=== PATIENT | female | born 1990 | race Caucasian/White ===

== ENCOUNTER 2019-11-21 20:40 | Inpatient (IN) | payer BC, SELFPAY ==
[2019-11-21 22:00] VITALS: TEMP 36.6
[2019-11-22] VITALS (55 sets, daily range): BP systolic 116–178; BP diastolic 71–105; PULSE 62–216; RESP 12–16; TEMP 36.1–36.8; O2SAT 98–100; BMI 32.3
[2019-11-22 00:42] LABS: Basophils Percent Auto 0.4 % (0.2-1.2); Eosinophils Percent Auto 0.3 % (0-4.4); Hemoglobin 10.1 g/dL (12.0-15.0); Immature Granulocyte Absolute 0.05 K/mm3 (0.00-0.031); Immature Granulocyte Percent A 0.5 % (0-0.5); Lymphocytes Absolute Auto 2.07 K/mm3 (0.9-3.2); Lymphocytes Percent Auto 21.3 % (18.3-44.2); Mean Corpuscular HGB Conc 32.6 g/dl (32-36); Mean Corpuscular Hemoglobin 28.6 pg (26-34); Mean Corpuscular Volume 87.8 fl (80-100); Mean Platelet Volume 12.7 fl (7.4-10.4); Monocytes Percent Auto 10.1 % (2.6-8.5); Neutrophils Absolute Auto 6.6 K/mm3 (1.3-6.7); Neutrophils Percent Auto 67.4 % (45.5-73.1); Platelet Count Result 214 k/mm3 (150-375); Red Blood Count 3.53 M/mm3 (4.2-5.4); Red Cell Distribution Width 13.7 % (11.5-14.5); White Blood Count 9.7 K/mm3 (4.5-10.0)
[2019-11-22] MEDS: LACTATED RINGERS 1,000 ML 125 ML IV CONT (00:45)
--- NOTE | 2019-11-22 00:48 | LDADM ---
This patient, Livia Patricio, was admitted to Labor/Delivery/Recovery 107 on 11/21/19 at 20:40. Plans for labor, pain management and were discussed with patient. Patient/family oriented to hospital policies and general routines including ID bracelet, bed and alarms, visiting hours, pain management, procedures, bathroom and other care routines, personal items, smoking policy, room service/diet and guest tray routines, security routines, and visiting hours. Patient/Family are encouraged to report perceived risks to care and to ask questions if they do not understand what they are told or what they should do. See OBIX for further documentation.
--- NOTE | 2019-11-22 01:11 | WPDANESEPP ---
Anes - Eval Pre Procedure Procedure: Labor epidural Date/Time: 11/22/19 01:11 Surgeon: Tanya Preop Diagnosis: Labor pain Pre Op Diagnosis: LABOR Patient Data Age: 29 Gender: F Height: 1.75 m Weight: 99.5 kg Last Vital Signs Pulse 62 11/22/19 01:08 BP 151/84 H 11/22/19 01:08 Pulse Ox 100 11/22/19 01:10 Allergies Allergy/AdvReac Type Severity Reaction Status Date / Time No Known Allergies Allergy Verified 11/04/19 12:28 Home Medications Medication Instructions Recorded Confirmed Type PNV cmb#95-ferrous fumarate-FA 1 tablet PO DAILY 11/04/19 11/04/19 History [] acyclovir 400 mg PO DAILY 11/04/19 11/04/19 History Laboratory Tests 11/22/19 11/22/19 11/22/19 00:32 00:32 00:32 WBC 9.7 K/mm3 K/mm3 (4.5-10.0) RBC 3.53 M/mm3 L M/mm3 (4.2-5.4) Hgb 10.1 g/dL L g/dL (12.0-15.0) Hct 31.0 % L % (37.0-47.0) MCV 87.8 fl fl (80-100) MCH 28.6 pg pg (26-34) MCHC 32.6 g/dl g/dl (32-36) RDW 13.7 % % (11.5-14.5) Plt Count 214 k/mm3 k/mm3 (150-375) MPV 12.7 fl H fl (7.4-10.4) Immature Gran % (Auto) 0.5 % % (0-0.5) Neut % (Auto) 67.4 % % (45.5-73.1) Lymph % (Auto) 21.3 % % (18.3-44.2) [place] % (Auto) 10.1 % H % (2.6-8.5) Eos % (Auto) 0.3 % % (0-4.4) Baso % (Auto) 0.4 % % (0.2-1.2) Lymph # (Auto) 2.07 K/mm3 K/mm3 (0.9-3.2) [place] # (Auto) 1.0 K/mm3 H K/mm3 (0.1-0.6) Eos # (Auto) 0.0 K/mm3 K/mm3 (0-0.3) Baso # (Auto) 0.0 K/mm3 K/mm3 (0.0-0.1) Abs Immat Gran (auto) 0.05 K/mm3 H K/mm3 (0.00-0.031) Absolute Neuts (auto) 6.6 K/mm3 K/mm3 (1.3-6.7) Absolute Nucleated RBC 0.0 K/mm3 K/mm3 (0.0-0.012) Nucleated RBC % 0.0 % % (0.0-0.2) Sodium Potassium Chloride Carbon Dioxide BUN Creatinine Estim Creat Clear Calc Estimated GFR Glucose Uric Acid 5.0 mg/dL mg/dL (2.5-7.5) Calcium Total Bilirubin AST ALT Alkaline Phosphatase Total Protein Albumin RPR Pending 11/22/19 00:32 WBC RBC Hgb Hct MCV MCH MCHC RDW Plt Count MPV Immature Gran % (Auto) Neut % (Auto) Lymph % (Auto) [place] % (Auto) Eos % (Auto) Baso % (Auto) Lymph # (Auto) [place] # (Auto) Eos # (Auto) Baso # (Auto) Abs Immat Gran (auto) Absolute Neuts (auto) Absolute Nucleated RBC Nucleated RBC % Sodium Pending Potassium Pending Chloride Pending Carbon Dioxide Pending BUN Pending Creatinine Pending Estim Creat Clear Calc Pending Estimated GFR Pending Glucose Pending Uric Acid Calcium Pending Total Bilirubin Pending AST Pending ALT Pending Alkaline Phosphatase Pending Total Protein Pending Albumin Pending RPR Patient hx anesthesia problems: none Family hx anesthesia problems: none [facility] Past Medical History Medical History (Updated 11/22/19 @ 01:11 by Lance So DO) PIH ( induced hypertension) Family History Family History (Updated 11/04/19 @ 12:30 by Lorena Bro RN) Grandparent Breast cancer Social History Social History Smoking status: Never smoker Second hand tobacco smoke exposure: No Substance use: never Spiritual care concerns: No Exam Day of Procedure 11/22/19 01:11 Patient weight: obese
[2019-11-22 01:29] LABS: Alanine Aminotransferase 15 U/L (4-35); Albumin Level 3.4 g/dL (3.5-5.1); Alkaline Phosphatase 224 U/L (38-126); Aspartate Amino Transferase 26 U/L (14-36); Bilirubin,Total 0.3 mg/dL (0.2-1.3); Blood Urea Nitrogen 11 mg/dL (7-17); Calcium 9.6 mg/dL (8.4-10.2); Carbon Dioxide 22 mmol/L (22-30); Chloride 106 mmol/L (98-107); Estimated CRCL calculation 150 ml/min; Estimated Glomerular Filt Rate > 60; Glucose 84 mg/dL (65-105); Potassium 4.2 mmol/L (3.4-5.0); Sodium 133 mmol/L (137-145)
[2019-11-22] MEDS: ONDANSETRON INJ 4 MG/2 ML VIAL IV PUSH (01:50)
--- NOTE | 2019-11-22 04:07 | WPDHPUPDATE1 ---
History and Physical Update Update Date/Time: 11/22/19 04:07 29 yo at 39w who presents in labor. She reports regular contractions since yesterday afternoon. She denies LOF or vaginal bleeding. She endorses good FM. History and Physical has been reviewed, including an updated exam of the patient. There are NO changes in the patient's condition. Risks, benefits, and alternatives have been discussed and questions answered. Patient agrees to proceed with procedure. A/P: admit to L&D routine admission orders Rh+ GBS neg FHT category 1 regular ctx on toco expectant management
[2019-11-22] MEDS: OXYTOCIN 30 UNITS/NS 500 ML 30 UNITS/500 ML BAG 999 UNITS IV CONT (04:31)
--- NOTE | 2019-11-22 04:34 | PM.OBPRVD ---
OB - Delivery Note Procedure Procedure: Patient pushed for a spontaneous vaginal delivery. The fetus was delivered atraumatically and placed on the maternal abdomen. The cord was clamped and cut after 1 minute of life. The cord was double clamped and cut and a segment of cord was collected for cord gases. Cord blood was collected for blood type and Coomb's testing. The placenta delivered spontaneously and was noted to be intact. The perineum was inspected and there were no lacerations noted. The uterus was firm and good hemostasis was noted. The patient and fetus were stable in the delivery room. events: Meconium Stained Fluid Intrapartal events: None Induction method: none Delivery augmentation: rupture of membranes (meconium stained) Delivery monitor: external FHT Route of delivery: Episiotomy description: None Laceration description: None Specimen: No Estimated blood loss (mL): 200 Anesthesia type: Epidural Disposition: floor () Complications: No immediate complications [place] Baby Date of : 11/22/19 Time of : 04:28 Weeks of gestation at delivery: 39 gender: Male Weight (pounds): 7 Weight (ounces): 8 position: Right Occiput Anterior Placenta delivery description: Spontaneous score one minute: 8 score five minutes: 9
[2019-11-22] MEDS: OXYTOCIN 30 UNITS/NS 500 ML 30 UNITS/500 ML BAG 125 UNITS IV CONT (05:15)
--- NOTE | 2019-11-22 07:00 | PC.NURSE ---
Patient transferred to post room #284 via wheelchair. Support person present. Oriented to unit, room, information board, rooming in, admission packet and security measures. Patient verbalizes understanding.
[2019-11-22 07:23] LABS: Rapid Plasma Reagin Non-Reactive (NonReactive)
[2019-11-22] MEDS: IBUPROFEN 600 MG TABLET (07:23)
--- NOTE | 2019-11-22 08:00 | PC.NURSE ---
Consulted with patient, mother reports this is 2nd child to breastfeed. eagerly latched for first feeding, with on and off during feeding. Mother has nipple tenderness. is sleepy mother is attempting to wake to feed. Demonstrated stimulation techniques to wake for feeding. Assisted with infant to breast. Reviewed positioning/alignment in cross cradle, holding breast in U hold and guided asymmetrical latch on. Discussed rational for each. was able to latch correctly, within a few attempts. nursed eagerly, with steady draws and frequent swallowing noted. Reviewed signs of a correct latch, effective nursing and suck swallow ratio. was able to maintain latch without discomfort to mother. Suggested mother stimulate to keep infant awake and nursing effectively giving slight resistance with pulls back to assist maintaining deep latch. Reviewed feeding cues, frequencies, duration of feedings, feeding elimination flow sheet, signs of adequate intake and nipple care. Instructed mother to call out for RN assistance if she is unable to latch infant for feeding or she has discomfort with nursing. Instructed feeding should be initiated three hours from start of last feeding or if feeding cues are noted before. Mother voiced understanding of information shared.
[2019-11-22] MEDS: MULTIVIT/MIN/PREN/FOL AC/IRON TABLET 1 TAB PO (11:40)
[2019-11-22] MEDS: ACETAMINOPHEN 325 MG TABLET 650 MG PO (11:40)
[2019-11-22] MEDS: DOCUSATE SODIUM 100 MG CAPSULE PO ×2 (11:40→15:51)
[2019-11-22] MEDS: LANOLIN (LANSINOH) 7.5 GM CREAM 1 APPLIC TOPICAL (11:42)
--- NOTE | 2019-11-22 13:30 | PC.NURSE ---
Mother called out for assist with latching. Mother has nipple tenderness to left nipple. Infant is sleepy mother is attempting to wake to feed. Demonstrated stimulation techniques to wake for feeding. Assisted with to breast. Reviewed positioning/alignment in cross cradle, holding breast in U hold and guided asymmetrical latch on. Discussed rational for each. was able to latch correctly, within a few attempts. nursed eagerly, with steady draws and frequent swallowing noted. Reviewed signs of a correct latch, effective nursing and suck swallow ratio. Infant was able to maintain latch without discomfort to mother. Suggested mother stimulate to keep awake and nursing effectively giving slight resistance with infant pulls back to assist maintaining deep latch. Reviewed infant feeding cues, frequencies, duration of feedings, feeding elimination flow sheet, signs of adequate intake and nipple care. Instructed mother to call out for RN assistance if she is unable to latch infant for feeding or she has discomfort with nursing. Instructed feeding should be initiated three hours from start of last feeding or if feeding cues are noted before. Mother voiced understanding of information shared.
[2019-11-22] MEDS: IBUPROFEN 600 MG TABLET PO (15:51)
[2019-11-23 05:21] LABS: Hemoglobin 9.2 g/dL (12.0-15.0)
--- NOTE | 2019-11-23 06:27 | PM.OBPNVD ---
OB - PN: Subj Subjective Date/time seen: 11/23/19 06:27 Patient comments: no complaints and pain well controlled baby status: doing well and nursing well OB - PN: Obj Data Labs CBC & Chem 7: 11/23/19 04:14 11/22/19 00:32 Labs: Laboratory Results - last 24 hr 11/22/19 11/23/19 00:32 04:14 Hgb 9.2 L Hct 28.0 L RPR Non-reactive OB - PN A/P Plan day: 1 Plan: routine care Time Spent With Patient Time: Total time spent is greater than 50% in coordination of care (as documented) at patient's floor/unit and/or counseling patient: Time with patient: less than 15 minutes Review of Systems Review of Systems: All systems reviewed & are unremarkable except as noted in HPI and below Exam Const: General: no acute distress Eyes: General: appearance normal, both eyes and all related structures Neck: Neck: supple and no JVD Thyroid: thyroid normal Resp: Effort & Inspection: normal respiratory effort Auscultation: clear to auscultation bilaterally Cardio: Rate: regular rate Rhythm: regular rhythm GI: Inspection: non-distended GI Palp: Yes Soft to palpation, No Tenderness to palpation present (GI) and No Guarding due to palpation present (GI) Auscultation: normal bowel sounds : General: Yes bladder normal to palpation External Female Exam: normal external appearance Speculum Exam - Vagina: normal vaginal discharge and No vaginal bleeding Speculum Exam - Cervix: nontender Bimanual exam- vagina & uterus: bladder normal to palpation and No Cervical tenderness present OB/external & speculum: No vaginal bleeding Skin: General skin exam: no rashes or lesions noted Extrem: General: normal to inspection and no edema Psych: Mental Status: mental status grossly normal Affect: normal affect
--- NOTE | 2019-11-23 06:52 | P.DS_ITS ---
DS: Diagnosis Admitting Diagnosis Admitting Diagnosis: term DS: Summary Time Spent with Patient Time attestation: Total time spent providing and/or coordinating discharge services: Exam Const: General: no acute distress Eyes: General: appearance normal, both eyes and all related structures Neck: Neck: supple and no JVD Thyroid: thyroid normal Resp: Effort & Inspection: normal respiratory effort Auscultation: clear to auscultation bilaterally Cardio: Rate: regular rate Rhythm: regular rhythm GI: Inspection: non-distended GI Palp: Yes Soft to palpation, No Tenderness to palpation present (GI) and No Guarding due to palpation present (GI) A uscultation: normal bowel sounds : General: Yes bladder normal to palpation External Female Exam: normal external appearance Speculum Exam - Vagina: normal vaginal discharge and No vaginal bleeding Speculum Exam - Cervix: nontender Bimanual exam- vagina & uterus: bladder normal to palpation and No Cervical tenderness present OB/external & speculum: No vaginal bleeding Skin: General skin exam: no rashes or lesions noted Extrem: General: normal to inspection and no edema Psych: Mental Status: mental status grossly normal Affect: normal affect DS: Data Data Completed and Pending Labs on day of discharge: Labs from last 24 hours 11/23/19 11/22/19 04:14 00:32 Hgb 9.2 L Hct 28.0 L RPR Non-reactive Discharge Plan Discharge Attending physician on discharge: Dimitrios Blevins Discharging Clinician: Dimitrios Blevins Patient Disposition: Home, Self-Care Activity: may shower, no straining, may drive after 2 weeks and pelvic rest Diet: heart healthy Wound Care Instructions: follow printed instructions Patient Instructions: Antibiotic Form Stand Alone Forms: General Discharge Information Follow-up/Referrals: Dimitrios Blevins MD [Physician] - Discharge Medications: Continued PNV cmb#95-ferrous fumarate-FA [] 28 mg iron- 800 mcg Tablet 1 tablet PO DAILY RF: 0 acyclovir 400 mg Tablet 400 mg PO DAILY RF: 0 Date of admission: 11/21/19 20:40 Primary Care Provider: UNKNOWN,DOCTOR Admitting Provider: Dimitrios Blevins Attending physician on admission: Dimitrios Blevins
[2019-11-23 07:00] VITALS: BP 132/88; PULSE 79; RESP 18; TEMP 36.6; O2SAT 100
[2019-11-23] MEDS: MULTIVIT/MIN/PREN/FOL AC/IRON TABLET 1 TAB PO (08:47)
[2019-11-23] MEDS: POLYSACCHARIDE IRON COMPLEX 150 MG CAPSULE PO (08:47)
[2019-11-23] MEDS: DOCUSATE SODIUM 100 MG CAPSULE PO (08:47)
[2019-11-23] MEDS: IBUPROFEN 600 MG TABLET PO (08:48)
--- NOTE | 2019-11-23 09:15 | PC.NURSE ---
Mother called out for assist with feeding, reporting pain to nipples. Mother states she requests assist and had a correct latch but still have pain. Mother has her own Latch Assist and Nipple Shield from home. Discussed both and correct uses. Mother does not believe the Latch Assist is helping, she has not attempted with the shield. Nipple shield is a 20 mm, advised she should be using a 24mm. Explained how the shield may assist with latching and nipple discomfort. Discussed nipple shield precautions and possible complications. Instructions given on application and cleaning of shield. Discussed the need to initiate pumping if continues to nurse with the shield. Patient verbalizes understanding. Mother is wishing to attempt this feed with shield. Reviewed positioning/alignment, holding breast and asymmetrical latch on. was able to latch correctly. Infant nursed eagerly, with steady draws and frequent swallowing noted. Reviewed signs of a correct latch, effective nursing and suck swallow ratio. was able to maintain latch without discomfort to mother. Nipple care reviewed. Requested mother call out for assist with pumping when feeding is complete.
--- NOTE | 2019-11-23 10:21 | PC.NURSE ---
Patient viewed the discharge video Mother & Baby Care, The First Two Weeks . Patient was given the opportunity and encouraged to ask questions. Patient verbalized understanding of information shared and has been given the mother/baby guide for home reference.
--- NOTE | 2019-11-23 12:21 | PC.NURSE ---
Circumcision care shown to mother. Self care and care discharge instructions given including follow up visit date and time. Mother verbalized understanding. No questions or concerns. Very pleasant and cooperative. at side.
--- NOTE | 2019-11-23 13:40 | PC.NURSE ---
Assisted mother with her breastpump. Instructions given on breast pump care and usage, pumping schedule, nipple care, and collection and storage of breast milk. Encouraged [id number], breast massage and manual expression to stimulate supply. Assessed patient for correct flange size, placement and draw. Patient verbalizes and demonstrates understanding of instructions. Mother is able to independently latch infant with appropriate positioning/alignment using nipple shield. She denies any nipple discomfort, is feeding as required and waking infant to feed if needed. Infant has had 8 effective feedings in the past 24 hours, and is currently meeting outcomes for weight, output, jaundice and feeding frequencies. Mother states she feels confident to continue effective at home. Reviewed transition to breast milk, signs of adequate intake, and engorgement/relief. Instructed to call ICP if intake/output less than required. Reviewed regular medications mother is taking. Information provided per Dena. Reviewed community resources on the [facility] website and in the Mom/Baby guide. Information on outpatient services provided. Mother has no further questions at this time.
[2019-11-24 10:25] VITALS: BP 135/85; PULSE 88; RESP 20; TEMP 36.8
== END 2019-11-23 14:17 | disposition home or self-care (01) | DRG 807 ==
LOC: ANHLDR 11-22 00:36 → ANHOB2 11-22 07:21
PROVIDERS: Admitting Provider Student in an Organized Health Care Education/Training Program; Visit Provider Obstetrics & Gynecology
DX: O77.0 Labor and delivery complicated by meconium in amniotic fluid (principal); Z37.0 Single live birth; Z3A.39 39 weeks gestation of pregnancy; O99.214 Obesity complicating childbirth; E66.9 Obesity, unspecified
CPT/HCPCS: 36415; 80053; 84550; 85014; 85018; 85025; 86592; 86850; 86900; 86901; A9270; J2405; J2590; J2795; J7120

== ENCOUNTER 2021-12-14 07:32 | Emergency (ER) | payer BC, SELFPAY ==
--- NOTE | ~2021-12-14 | XR_ITS ---
EXAMINATION: XR chest 2V EXAM DATE: 12/14/2021 08:46 INDICATION: Cough x10 days. TECHNIQUE: Frontal and lateral projections of the chest obtained and reviewed. Comparison is made to prior examination from 12/07/2018. FINDINGS: The lungs are clear. There are no pleural effusions. The cardiomediastinal silhouette is within normal limits. There is no pneumothorax suspected. The bones and soft tissues are unremarkab le. IMPRESSION: No acute cardiopulmonary findings. Reviewed, dictated and finalized at location A.
[2021-12-14 07:40] VITALS: BP 153/103; PULSE 86; RESP 22; TEMP 36.1; O2SAT 100
[2021-12-14 07:50] VITALS: O2SAT 100
[2021-12-14 08:05] LABS: Basophils Absolute Auto 0.1 K/mm3 (0.0-0.1); Basophils Percent Auto 0.5 % (0.2-1.2); Eosinophils Absolute Auto 0.1 K/mm3 (0-0.3); Eosinophils Percent Auto 1.1 % (0-4.4); Hematocrit 38.6 % (37.0-47.0); Hemoglobin 13.2 g/dL (12.0-15.0); Immature Granulocyte Absolute 0.05 K/mm3 (0.00-0.031); Immature Granulocyte Percent A 0.5 % (0-0.5); Lymphocytes Absolute Auto 3.63 K/mm3 (0.9-3.2); Lymphocytes Percent Auto 36.2 % (18.3-44.2); Mean Corpuscular HGB Conc 34.2 g/dl (32-36); Mean Corpuscular Hemoglobin 32.4 pg (26-34); Mean Corpuscular Volume 94.8 fl (80-100); Monocytes Absolute Auto 0.8 K/mm3 (0.1-0.6); Monocytes Percent Auto 8.2 % (2.6-8.5); Neutrophils Absolute Auto 5.4 K/mm3 (1.3-6.7); Neutrophils Percent Auto 53.5 % (45.5-73.1); Platelet Count Result 343 k/mm3 (150-375); Red Blood Count 4.07 M/mm3 (4.2-5.4); Red Cell Distribution Width 12.5 % (11.5-14.5)
[2021-12-14] MEDS: ALBUTEROL SULFATE NEB 2.5 MG/0.5 ML INH 5 MG INHALATION (08:08)
[2021-12-14] MEDS: IPRATROPIUM BR 0.02% INH SOLN 0.5 MG/2.5 ML VIAL INHALATION (08:08)
[2021-12-14 08:15] LABS: Alanine Aminotransferase 15 U/L (4-35); Albumin Level 4.1 g/dL (3.5-5.1); Alkaline Phosphatase 78 U/L (38-126); Anion Gap 6 mmol/L (8-16); Aspartate Amino Transferase 23 U/L (14-36); Bilirubin,Total 0.2 mg/dL (0.2-1.3); Blood Urea Nitrogen 19 mg/dL (7-17); Calcium 8.3 mg/dL (8.4-10.2); Carbon Dioxide 27 mmol/L (22-30); Chloride 103 mmol/L (98-107); Estimated CRCL calculation 94 ml/min; Estimated Glomerular Filt Rate > 60; Glucose 90 mg/dL (65-110); Potassium 3.4 mmol/L (3.4-5.0); Sodium 136 mmol/L (137-145)
[2021-12-14 08:59] LABS: SARS-CoV-2 RNA PCR Negative
[2021-12-14 09:04] LABS: Influenza A QL RT-PCR Negative (Negative); Influenza B QL RT-PCR Negative (Negative)
--- NOTE | 2021-12-14 09:04 | ED.URI ---
HPI - URI/Sore Throat General Chief Complaint: Upper Respiratory Infection Stated Complaint: Cough x10 days Time Seen by Provider: 12/14/21 07:37 Source: patient History of Present Illness HPI Narrative: Patient presents with cough and shortness of breath for approximately 10 days. She was seen in urgent care given steroids and Tessalon Perles however symptoms persisted so she came to the ER for evaluation. She denies any congestion or fevers. Reports she is coughing so bad she has a headache. Related Data Home Medications Medication Instructions Recorded Confirmed PNV cmb#95-ferrous fumarate-FA 1 tablet PO DAILY 11/04/19 11/04/19 [] acyclovir 400 mg PO DAILY 11/04/19 11/04/19 Allergies Allergy/AdvReac Type Severity Reaction Status Date / Time No Known Allergies Allergy Verified 12/14/21 07:48 Review of Systems Review of Systems: CONSTITUTIONAL: Denies fever, chills, or sweats. EYES: Denies visual changes, redness, or discharge. ENT: Denies rhinorrhea, congestion, sore throat, or otalgia. CARDIOVASCULAR: Denies chest pain, palpitations, or edema. RESPIRATORY:cough GASTROINTESTINAL: Denies abdominal pain, nausea, vomiting, or diarrhea. GENITOURINARY: Denies dysuria or hematuria. SKIN: Denies rash or itching. MUSCULOSKELETAL: Denies back pain, joint pain, or myalgia. NEUROLOGIC: Denies numbness, dizziness, or weakness. PSYCHIATRIC: Denies anxiety or depression. All systems reviewed & are unremarkable except as noted in HPI and below PMFSH Past Medical History Medical History PIH ( induced hypertension) Family History Family History Grandparent Breast cancer Social History Social History Smoking status: Never smoker Second hand tobacco smoke exposure: No Substance use: never Spiritual care concerns: No Exam Narrative: GENERAL: Well-appearing, well-nourished, and in no acute distress. HEAD: Normocephalic, atraumatic. EYES: PERRLA and EOMI. ENT: Nares clear, no rhinorrhea or epistaxis. Mucous membranes moist. NECK: Supple. No masses. No JVD CHEST: Clear to auscultation. No respiratory distress. No wheezes rales or rhonchi HEART: Regular rate and rhythm. No murmur heard. Normal peripheral pulses. ABDOMEN: Soft, nontender, nondistended, normal active bowel sounds. EXTREMITIES: Normal range of motion. No edema. SKIN: Warm, dry, no rash. NEURO: No focal deficits. Alert and oriented x3. PSYCH: Normal mood and affect. Course Reevaluation(s) Reevaluation #1: Patient reports feeling much improved and is comfortable outpatient plan. Date: 12/14/21 Time: 09:22 Vital Signs Vital signs: Vital Signs Temperature 36.1 C L 12/14/21 07:40 Pulse Rate 86 12/14/21 07:40 Respiratory Rate 22 H 12/14/21 07:40 Blood Pressure 153/103 H 12/14/21 07:40 Pulse Oximetry 100 12/14/21 07:40 Temperature 36.1 C L 12/14/21 07:40 Pulse Rate 65 12/14/21 10:30 Respiratory Rate 18 12/14/21 10:30 Blood Pressure 116/81 12/14/21 10:30 Pulse Oximetry 100 12/14/21 10:30 MDM - URI/Sore Throat MDM Narrative Medical decision making narrative: H&P as above, vss, pt looks clinically well, exam with clear lungs, labs clinically unremarkable, img clinically unremarkable, additional labs/img considered, symptomatic relief available as needed, on reevaluation pt continues to looks clinically well. Suspect viral bronchitis, dns pneumonia, severe sepsis, pneumothorax. plan to tx/monitor as op w/ pcm f/u findings/plan discussed with pt, pt agree/comfortable with plan, return precautions given Lab Data Result diagrams: 12/14/21 07:52 12/14/21 07:52 Labs: Lab Results 12/14/21 12/14/21 12/14/21 Range/Units 07:52 07:52 07:52 WBC 10.0 (4.5-10.0) K/mm3 RBC 4.07 L (4.2-5.4) M/mm3 H
[2021-12-14] MEDS: ACETAMINOPHEN 500 MG TABLET 1000 MG PO (09:20)
[2021-12-14 09:23] VITALS: BP 117/63; PULSE 86; RESP 20; O2SAT 100
[2021-12-14 10:30] VITALS: BP 116/81; PULSE 65; RESP 18; O2SAT 100
== END 2021-12-14 10:30 | disposition home or self-care (01) ==
PROVIDERS: Emergency Provider Emergency Medicine
DX: J40 Bronchitis, not specified as acute or chronic (principal); Z20.822 Contact with and (suspected) exposure to COVID-19
CPT/HCPCS: 36415; 71046; 80053; 85025; 87502; 94640; 99283; A9270; C9803; U0003; U0005

== ENCOUNTER 2022-12-16 00:50 | Emergency (ER) | payer BC, SELFPAY ==
[2022-12-16 00:52] VITALS: BP 143/91; PULSE 84; RESP 18; TEMP 36.6; O2SAT 99
--- NOTE | 2022-12-16 01:05 | ED.GENADULT ---
HPI - General Adult General Chief complaint: Ear Stated complaint: ear pain Time Seen by Provider: 12/16/22 00:59 History of Present Illness HPI narrative: Patient 32-year-old female who presents the emergency department with chief complaint of left ear pain. Patient reports that she has felt as though her ears were multiple stopped up over the last several days and reports that tonight she had intense pain in her left ear. Patient reports that she has decreased hearing out of that ear and feels as though her eardrum is bulging. Patient states that she has had no fever does report that she had a little bit of nasal congestion. Patient reports she has not taken anything for pain but reports the pain is extremely intense. Related Data Home Medications Medication Instructions Recorded Confirmed acyclovir 400 mg tablet 400 mg PO DAILY 11/04/19 11/04/19 vit no.95-ferrous 1 tablet PO DAILY 11/04/19 11/04/19 fumarate 28 mg-folic acid 800 mcg tablet () Allergies Allergy/AdvReac Type Severity Reaction Status Date / Time No Known Allergies Allergy Verified 12/16/22 00:50 Review of Systems Review of Systems: A 10 system review of systems was completed on the patient and is negative except for what is stated in the HPI. Nursing and ancillary documentation was reviewed. [facility] Past Medical History Medical History PIH ( induced hypertension) Family History Family History Grandparent Breast cancer Social History Social History Smoking status: Never smoker Second hand tobacco smoke exposure: No Substance use: never Spiritual care concerns: No Exam Narrative: GENERAL: Well-appearing, well-nourished, and in no acute distress. HEAD: Normocephalic, atraumatic. EYES: PERRLA and EOMI. ENT: Nares clear, no rhinorrhea or epistaxis. Mucous membranes moist. Left eardrum is bulging and erythematous NECK: Supple. CHEST: Clear to auscultation. No respiratory distress. HEART: Regular rate and rhythm. No murmur heard. Normal peripheral pulses. ABDOMEN: Soft, nontender, nondistended, normal active bowel sounds. EXTREMITIES: Normal range of motion. No edema. SKIN: Warm, dry, no rash. NEURO: No focal deficits. Alert and oriented x3. PSYCH: Normal mood and affect. Course Vital Signs Vital signs: Vital Signs Temperature 36.6 C 12/16/22 00:52 Pulse Rate 84 12/16/22 00:52 Respiratory Rate 18 12/16/22 00:52 Blood Pressure 143/91 H 12/16/22 00:52 Pulse Oximetry 99 12/16/22 00:52 Oxygen Delivery Room Air 12/16/22 00:52 Temperature 36.6 C 12/16/22 00:52 Pulse Rate 84 12/16/22 00:52 Respiratory Rate 18 12/16/22 00:52 Blood Pressure 143/91 H 12/16/22 00:52 Pulse Oximetry 99 12/16/22 00:52 Oxygen Delivery Room Air 12/16/22 00:52 Medical Decision Making MDM Narrative Medical decision making narrative: Differential diagnosis includes otitis media upper respiratory infection, otitis externa Patient's exam is consistent with acute otitis media This time laboratory testing was not indicated. Patient received a dose of Augmentin, ibuprofen, Zofran and was given a single dose of [place] in the emergency department Vital Signs Vital Signs: Vital Signs Temperature 36.6 C 12/16/22 00:52 Pulse Rate 84 12/16/22 00:52 Respiratory Rate 18 12/16/22 00:52 Blood Pressure 143/91 H 12/16/22 00:52 Pulse Oximetry 99 12/16/22 00:52 Oxygen Delivery Room Air 12/16/22 00:52 Temperature 36.6 C 12/16/22 00:52 Pulse Rate 84 12/16/22 00:52 Respiratory Rate 18 12/16/22 00:52 Blood Pressure 143/91 H 12/16/22 00:52 Pulse Oximetry 99 12/16/22 00:52 Oxygen Delivery Room Air 12/16/22 00:52 Discharge Plan Discharge Clinical Impression:
[2022-12-16] MEDS: ONDANSETRON HCL ODT 4 MG TABLET PO (01:20)
[2022-12-16] MEDS: HYDROcodone/acetaminophen (*CRX) 5-325 MG TABLET 1 TAB PO (01:21)
[2022-12-16] MEDS: IBUPROFEN 400 MG TABLET 800 MG PO (01:21)
[2022-12-16] MEDS: AMOXICILLIN/CLAVULANATE K 875-125 MG TAB 1 TABLET PO (01:22)
[2022-12-16 01:24] VITALS: BP 139/106; PULSE 83; RESP 18; O2SAT 100
== END 2022-12-16 01:30 | disposition home or self-care (01) ==
LOC: ANHED 01:11
PROVIDERS: Emergency Provider Emergency Medicine; PCP Nurse Practitioner Family
DX: H66.92 Otitis media, unspecified, left ear (principal)
CPT/HCPCS: 99283; A9270

== ENCOUNTER 2024-06-25 10:29 | Emergency (ER) | payer OTHER, SELFPAY ==
--- NOTE | 2024-06-25 10:33 | ED.URI ---
HPI - URI/Sore Throat General Chief Complaint: Upper Respiratory Infection Stated Complaint: Cough and Neck Pain Time Seen by Provider: 06/25/24 10:51 Source: patient, RN notes reviewed and old records reviewed Mode of arrival: ambulatory Limitations: no limitations History of Present Illness HPI Narrative: 33-year-old female presents to the [facility] with continued cough that has been going on for several weeks. Has been treated with an antibiotic on it. Patient also reports neck discomfort. Patient reports that she started getting sick around the 27 of May. Had seen primary care provider was prescribed antibiotics which helped with her sinus issues but not her cough. Patient reports the neck discomfort is worse with coughing. States it hurts more when she moves side to side. No pain with up down. Reports pain started on the right side, has since moved to the left. No midline tenderness. No numbness or tingling in extremity Related Data Home Medications Medication Instructions Recorded Confirmed bupropion HCl 150 mg 24 hr tablet, 150 mg PO DAILY 01/11/24 06/25/24 extended release lisdexamfetamine 50 mg capsule 50 mg PO DAILY 01/11/24 06/25/24 norethindrone 1 mg-ethinyl 1 tablet PO DAILY 01/11/24 06/25/24 estradiol 20 mcg (21)-iron 75 mg (7) tablet (Blisovi Fe 09/25 (28)) Allergies Allergy/AdvReac Type Severity Reaction Status Date / Time No Known Allergies Allergy Verified 06/25/24 10:43 Review of Systems Review of Systems: All systems reviewed & are unremarkable except as noted in HPI and below Constitutional: Constitutional: Reports no additional constitutional complaints ENT: Reports system reviewed and no additional complaints, except as documented Cardiovascular: Cardiovascular: Reports no additional cardiovascular complaints, Denies chest pain and Denies dyspnea Respiratory: Respiratory: Reports as per HPI, Denies chest congestion, Reports cough and Denies dyspnea Gastrointestinal: Gastrointestinal: Reports no additional gastrointestinal complaints, Denies abdominal pain, Denies nausea and Denies vomiting Musculoskeletal: Musculoskeletal: Reports as per HPI and Reports neck pain Integumentary/Breasts: Skin/Breast: Reports system reviewed and no additional complaints, except as docu PMFSH Past Medical History Medical History ADHD Hx of Infante's palsy Hx of herpes genitalis Migraine PIH ( induced hypertension) Surgical History Surgical History History of tonsillectomy (~2022) Family History Family History Grandparent Breast cancer Social History Social History Smoking status: Never smoker Second hand tobacco smoke exposure: No Substance use: never Do You Feel Safe in your Home?: Yes Lack of Transportation: No Lack of Food: Never True Current Housing: I Have Housing Concerned About Future Housing: No Difficulty Paying Gas/Electric Bills: No Difficulty Paying for Meds: No Currently Unemployed: No Education: Trade/Vocational Certificate Difficulty w/ Childcare or Family Care: No Spiritual care concerns: No Comments At the time of my signature, I reviewed and agree with the nursing past medical, surgical, social, and family history. There is no relevant family history pertinent to the patient complaint. Exam Const: General: cooperative, healthy appearing, comfortable, no acute distress, well developed, alert and well nourished Nutritional Appearance: well nourished Orientation/consciousness: patient oriented x3 Limitations: no limitations HENMT: Head: normal to inspection Ears: hearing grossly normal bilaterally and external ears normal Face/Nose/Sinus: Normal external nose present, normal facial exam and face symmetric F
[2024-06-25 10:43] VITALS: BP 128/87; PULSE 88; RESP 16; TEMP 36.6; O2SAT 100
[2024-06-25 10:45] VITALS: BP 128/87; PULSE 88; RESP 16; TEMP 36.6; O2SAT 100
== END 2024-06-25 11:15 | disposition home or self-care (01) ==
PROVIDERS: Emergency Provider Nurse Practitioner; PCP Nurse Practitioner
DX: R05.9 Cough, unspecified (principal); R09.82 Postnasal drip; S16.1XXA Strain of muscle, fascia and tendon at neck level, initial encounter; X58.XXXA Exposure to other specified factors, initial encounter; F90.9 Attention-deficit hyperactivity disorder, unspecified type
CPT/HCPCS: 99213; G0463

== ENCOUNTER 2025-06-05 20:39 | Emergency (ER) | payer OTHER, SELFPAY ==
--- NOTE | ~2025-06-05 | CT_ITS ---
CT HEAD NON-CONTRAST Clinical History: migraine Comparison: None Technique: Unenhanced axial images skull base to vertex Coronal, sagittal reformats CT images acquired with automatic exposure control for dose reduction DLP: 530 mGy-cm Findings: Sulci, ventricles: Unremarkable. No intracerebral hemorrhage. No evidence acute territorial infarct. No mass effect, midline shift. Bony calvarium intact. Visualized paranasal sinuses: Clear. Mastoid air cells: Clear. IMPRESSION: 1. No acute intracranial findings. Reviewed, dictated and finalized at location R.
[2025-06-05 21:13] VITALS: BP 140/90; PULSE 87; RESP 18; TEMP 36.4; O2SAT 100
--- NOTE | 2025-06-05 21:18 | ECG_ITS ---
Test Date: 2025-06-05 21:21:29 Measurements Intervals [place] Rate: 82 P: 60 VT: 156 QRS: 69 QRSD: 85 T: 63 QT: 376 QTc: 439 Interpretive Statements SINUS RHYTHM WITH SINUS ARRHYTHMIA POSSIBLE RIGHT VENTRICULAR CONDUCTION DELAY BASELINE ARTIFACT- II, III BORDERLINE ECG No previous ECG available for comparison Electronically Signed On 06-06-2025 06:17:57 CDT by Manoj Moore D.O.
[2025-06-05 21:35] LABS: BEDSIDEPREGUCG Negative (Negative)
[2025-06-05 21:58] LABS: Add Urine Microscopic? YES; Appearance Urine Turbid (Clear); Glucose Urine UA Negative (Negative); Leukocyte Esterase Ur Negative LEU/UL (Negative); Nitrate Urine Negative (Negative); Non Pathogenic Casts 0-2; Specific Grav Ur 1.013 (1.001-1.035)
[2025-06-05 23:27] LABS: Pregnancy On Board Control Positive
--- OUTSIDE RECORDS SUMMARY | 2025-06-05 23:43 | XMS_ITS | Clinical Summary ---
Author Organization [facility] Address [address] [place] [address] Care Team Providers Care Cooker Helper Name Role Phone Dimitrios Forrester MD Primary Care Provider [phone] Allergies No known active allergies Medications amoxicillin-clavul anate (AUGMENTIN) 875-125 mg per tablet Take 1 tablet by mouth every 12 (twelve) hours 09/01/20 23 Active buPROPion XL (WELLBUTRIN XL) 150 mg 24 hr tablet Take 1 tablet (150 mg total) by mouth every morning 08/09/20 23 Active Vyvanse 40 mg capsule Take 1 capsule (40 mg total) by mouth every morning 09/30/19 24 Active naproxen (NAPROSYN) 500 mg tablet 08/15/20 23 Active Blisovi Fe 09/25, 28, 1 mg-20 mcg (21)/75 mg (7) per tablet Take 1 tablet by mouth daily 08/15/20 23 Active ondansetron ODT (ZOFRAN-ODT) 4 mg disintegrating tablet Take 1 tablet (4 mg total) by mouth every 8 (eight) hours as needed 08/13/20 23 Active predniSONE (DELTASONE) 20 mg tablet 08/13/20 23 Active albuterol HFA (PROVENTIL HFA,VENTOLIN HFA,PROAIR HFA) 90 mcg/actuation inhaler INHALE 2 PUFFS BY MOUTH FOUR TIMES DAILY NEEDED FOR SHORTNESS OF BREATH OR WHEEZING Active benzonatate (TESSALON) 200 mg capsule Take 1 capsule 3 times a day by oral route as needed. Active omeprazole (PriLOSEC) 40 mg capsule Take 1 capsule every day by oral route. 04/28/20 Active scopolamine 1 mg over 3 days patch 3 day Apply 1 patch by transdermal route as directed. 04/28/20 Active ubrogepant (Ubrelvy) 100 mg tablet Take by oral route for 8 days. Active omeprazole (PriLOSEC) 20 mg capsule Take 1 capsule every day by oral route for 90 days. Active topiramate (TOPAMAX) 25 mg tablet Take 1 tablet (25 mg total) by mouth 2 (two) times a day Active Active Problems Problem Noted Date Diagnosed Date Upper respiratory infection 08/31/2023 Mixed anxiety and depressive disorder 04/28/2023 Motion sickness 04/28/2023 Unable to concentrate 04/28/2023 Cryptic tonsil 04/25/2023 Gastroesophageal reflux disease without esophagi tis 04/25/2023 Intermittent dysphagia 04/25/2023 Migraine 04/25/2023 Symptoms involving urinary system 04/25/2023 Pain of ear structure 12/22/2022 Vaginitis 12/03/2022 Nausea 11/20/2022 Candidiasis of vagina 10/21/2022 Acute urinary tract infection 10/19/2022 Pain in throat 08/13/2022 Acute sinusitis 07/22/2022 Immunizations Immunization Administration Dates Next Due HPV9 07/22/2018,03/01/2018,08/24/2017 Influenza, Quadrivalent, Dariela l Culture-based MDCK, Preservative Free, Antibiotic Free, Intramuscular 09/11/2019 Influenza, Quadrivalent, Spl it, Intramuscular 07/22/2018 Meningococcal MCV4P (Menactra) 08/24/2017 Tdap 09/11/2019,04/03/2017 Social History Tobacco Use Types Packs/Day Years Used Date Smoking Tobacco: Never Assessed Comments No Sex and Gender Information Value Date Recorded Sex Assigned at Not on file 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 Gender Identity Not on file Sexual Orientation Not on file Obstetrics History Last Filed Vital Signs Vital Sign Reading Time Taken Comments Blood Pressure 110/60 12/21/2024 9:29 AM CDT Pulse 59 12/21/2024 9:29 AM CDT Temperature 36.4 C (97.6 F) 12/21/2024 9:29 AM CDT Respiratory Rate 16 12/21/2024 9:29 AM CDT Oxygen Saturation 99% 12/21/2024 9:29 AM CDT Inhaled Oxygen Concentration - - Weight 68 kg (150 lb) 12/21/2024 9:29 AM CDT Height 175.3 cm (5' 9) 12/21/2024 9:29 AM CDT Body Mass Index 22.15 12/21/2024 9:29 AM CDT Plan of Treatment Health Maintenance Due Date Last Done Comments Cervical Cancer Screening 1992 Depression Screening 1992 Hepatitis C Screening 1992 Varicella Vaccines (1 of 2 - 13+ 2-dose series) 2005 Hepatitis B Screening 2010 Regular Well Visit/Exam 18-64 2010 Influenza Vaccine (#1) 2025 , 07/22/2018 DTaP/Tdap/Td Vaccine (3 - Td or Tdap) 09/11/2029 09/11/2019, 04/03/2017 HPV Vaccines Completed 07/22/2018, 03/01/2018, 08/24/2017 Pneumococcal vaccine <65 Aged Out No longer eligible based on patient's age to complete this topic Insurance [facility] Address: [facility] [address] [place] [address] [facility] [place] [address] Care Teams Cooker Helper Relationship Specialty Start Date End Date Dimitrios Forrester MD [address] [facility] [address] [place] [address] PCP - General Obstetrics and Gynecology 07/13/24
--- OUTSIDE RECORDS SUMMARY | 2025-06-05 23:43 | XMS_ITS | Clinical Summary ---
Author Organization [facility] Address [address] [place] [address] Care Team Providers Care Otr Owner Operator Truck Driver Name Role Phone Jean Claudesotero Amaya SANDRINE Primary Care Provider [phone] Allergies No known active allergies Medications ondansetron (ZOFRAN-ODT) 4 MG disintegrating tablet Take 1 tablet (4 mg total) by mouth every 8 (eight) hours as needed for Nausea. 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 Gender Identity Not on file Sexual Orientation Not on file Last Filed Vital Signs Vital Sign Reading Time Taken Comments Blood Pressure 125/82 08/13/2023 4:41 PM BOOM STICK WORKER Pulse 81 08/13/2023 4:41 PM BOOM STICK WORKER Temperature 36.1 C (97 F) 08/13/2023 2:00 PM BOOM STICK WORKER Respiratory Rate 18 08/13/2023 4:41 PM BOOM STICK WORKER Oxygen Saturation 100% 08/13/2023 4:41 PM BOOM STICK WORKER Inhaled Oxygen Concentration - - Weight 72.6 kg (160 lb) 08/13/2023 2:00 PM BOOM STICK WORKER Height 175.3 cm (5' 9) 08/13/2023 2:00 PM BOOM STICK WORKER Body Mass Index 23.63 08/13/2023 2:00 PM BOOM STICK WORKER Plan of Treatment Health Maintenance Due Date Last Done Comments Cervical Cancer Screening Pa p Smear (Age 30 to 64) Every 3 Years 1992 Annual Physical 1995 Hepatitis C 2010 Hepatitis B Vaccines (1 of 3 - 19+ 3-dose series) 2011 Cervical Cancer Screening Pa p with HPV Testing (Age 30 to 64) Every 5 Years 2022 Cervical Cancer Screening wi th HPV 2022 COVID-19 Vaccine (1 - 2023-2 5 season) 2025 DTaP, Tdap and Td Vaccines ( 3 - Td or Tdap) 09/11/2029 09/11/2019, 04/03/2017 Meningococcal Vaccine Aged Out 08/24/2017 No michael derek eligible based on patient's age to complete this topic HPV Vaccines Completed 07/22/2018, 03/01/2018, 08/24/2017 Meningococcal B Vaccine Aged Out No l onger eligible based on patient's age to complete this topic Pneumococcal Vaccine: Pediatrics (0 to 5 Years) and At-Risk Patients (6 to 49 Years) Aged Out No longer eligible b ased on patient's age to complete this topic RSV Immunizations Under 20 Months Aged Out No longer eligible b ased on patient's age to complete this topic Insurance [facility] Care Teams Otr Owner Operator Truck Driver Relationship Specialty Start Date End Date Amaya Singh NP [address] [id number] PCP - General NURSE PRACTITIONER 08/13/23
--- NOTE | 2025-06-06 00:07 | ED_ITS ---
HPI - General Adult General Chief complaint: Unspecified Stated complaint: medication side effect Time Seen by Provider: 06/05/25 23:29 History of Present Illness HPI narrative: 34-year-old female with history of Infante's palsy and migraine headaches presenting to the emergency department today with a migraine headache and concerned that she took too much of her topiramate. She states that her doctor increased her topiramate doses over the last 3 weeks and she has been having adverse reactions to this. Initially she was well controlled with 25 mg b.i.d. topiramate dosing and was migraine free for quite a while. Two weeks ago she had recurrence for migraines not responsive to this current regimen and breakthrough Triptan. Her doctor encouraged her to double the dose and she was then taking 50 mg b.i.d. and still having symptoms. Patient then started taking 75 mg b.i.d. over last 4 days and started developing brain fog and some slight trouble breathing. Denies any chest pain or pressure. Endorses still having a migraine headache she describes as bilateral occipital nature. States it feels very similar to her normal migraines. Denies any traumatic injuries. Has a follow-up appointment scheduled with Neurology but has not seen a neurologist yet or had any workup for her migraines. 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) Surgical History Surgical History History of tonsillectomy (~2022) Family History Family History Grandparent Breast cancer Social History Social History Smoking status: Never smoker Second hand tobacco smoke exposure: No Substance use: never Do You Feel Safe in your Home?: Yes Lack of Transportation: No Lack of Food: Never True Current Housing: I Have Housing Concerned About Future Housing: No Difficulty Paying Gas/Electric Bills: No Difficulty Paying for Meds: No Currently Unemployed: No Education: Trade/Vocational Certificate Difficulty w/ Childcare or Family Care: No Spiritual care concerns: No Exam 2 Narrative: GENERAL: [Well-appearing, well-nourished, and in no acute distress.] HEAD: [Normocephalic, atraumatic.] EYES: [PERRLA and EOMI.] 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 Mucous membranes moist. NECK: Supple. CHEST: [Clear to auscultation. No respiratory distress.] HEART: [Regular rate and rhythm]. No murmur heard. [Normal peripheral pulses.] ABDOMEN: [Soft, nondistended], [nontender], [No rigidity or guarding] EXTREMITIES: Normal range of motion. [No edema.] SKIN: Warm, dry, no rash. NEURO: [No focal deficits]. Alert and oriented [x3.] PSYCH: [Normal mood and affect.] Course Vital Signs Vital signs: Vital Signs Temperature 36.4 C 06/05/25 21:13 Pulse Rate 87 06/05/25 21:13 Respiratory Rate 18 06/05/25 21:13 Blood Pressure 140/90 06/05/25 21:13 Pulse Oximetry 100 06/05/25 21:13 Oxygen Delivery Room Air 06/05/25 21:13 Temperature 36.5 C 06/06/25 02:13 Pulse Rate 62 06/06/25 02:13 Respiratory Rate 16 06/06/25 02:13 Blood Pressure 126/82 06/06/25 02:13 Pulse Oximetry 96 06/06/25 02:13 Oxygen Delivery Room Air 06/05/25 21:13 Medical Decision Making [facility] Narrative Medical decision making narrative: 34-year-old female with history of Infante's palsy and migraine headaches presenting to the emergency department today with a migraine headache and concerned that she took too much of her topiramate. She states that her doctor increased her topiramate doses over the last 3 weeks and she has been having adverse reactions to this. Initially she was well controlled with 25 mg b.i.d. topiramate dosing and was migraine free for quite a while. Two weeks ago she had recurrence for migraines not responsive to this current regimen and breakthrough Triptan. Her doctor encouraged her to double the dose and she was then taking 50 mg b.i.d. and still having symptoms. Patient then started taking 75 mg b.i.d. over last 4 days and started developing brain fog and some slight trouble breathing. Denies any chest pain or pressure. Endorses still having a migraine headache she describes as bilateral occipital nature. States it feels very similar to her normal migraines. Denies any traumatic injuries. Has a follow-up appointment scheduled with Neurology but has not seen a neurologist yet or had any workup for her migraines. 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 Patient's physical examination is reassuring with normal neurological assessment. 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 No tachycardia, tachypnea, fever, hypoxia or blood pressure concerns. Symptoms sound consistent with a migraine headache refractory to her current medication regimen and she likely does have some adverse side effects secondary to taking more than her usual topiramate doses but nontoxic does and she is overall very well-appearing. Will obtain a head CT, basic laboratory studies and treat her migraine headache at this time with Compazine, diphenhydramine, fluids, magnesium and Decadron. Will re-evaluate for symptom improvement resolution and provide further guidance based on workup and results/reassessments. Patient felt much better on re-evaluation and her migraine and completely resolved. CT findings unremarkable. Laboratory studies unremarkable. Patient really has neurology follow-up appointment scheduled. Safe for discharge at this time given instructions and return precautions. Discharge during down time so paper instructions provided to her. Encouraged to call her doctor about tapering down her topiramate dosing. Medical Records Medical records reviewed: Yes I reviewed the external patient's medical records. Vital Signs Vital Signs: Vital Signs Temperature 36.4 C 06/05/25 21:13 Pulse Rate 87 06/05/25 21:13 Respiratory Rate 18 06/05/25 21:13 Blood Pressure 140/90 06/05/25 21:13 Pulse Oximetry 100 06/05/25 21:13 Oxygen Delivery Room Air 06/05/25 21:13 Temperature 36.5 C 06/06/25 02:13 Pulse Rate 62 06/06/25 02:13 Respiratory Rate 16 06/06/25 02:13 Blood Pressure 126/82 06/06/25 02:13 Pulse Oximetry 96 06/06/25 02:13 Oxygen Delivery Room Air 06/05/25 21:13 Lab Data Lab results reviewed: Yes I reviewed the patient's lab results. 06/06/25 00:04 06/06/25 00:04 Labs: Lab Results 06/05/25 06/05/25 06/06/25 Range/Units 21:33 21:48 00:04 WBC 7.7 (4.5-10.0) K/mm3 RBC 4.16 L (4.2-5.4) M/mm3 Hgb 13.3 (12.0-15.0) g/dL Hct 38.9 (37.0-47.0) % MCV 93.5 (80-100) fl MCH 32.0 (26-34) pg MCHC 34.2 (32-36) g/dl RDW 12.6 (11.5-14.5) % Plt Count 356 (150-375) k/mm3 MPV 10.0 (7.4-10.4) fl Immature Gran % (Auto) 0.9 H (0-0.5) % Neut % (Auto) 54.7 (45.5-73.1) % Lymph % (Auto) 35.7 (18.3-44.2) % [place]atte % (Auto) 7.1 (2.6-8.5) % Eos % (Auto) 0.8 (0-4.4) % Baso % (Auto) 0.8 (0.2-1.2) % Lymph # (Auto) 2.75 (0.9-3.2) K/mm3 Platte # (Auto) 0.6 (0.1-0.6) K/mm3 Eos # (Auto) 0.1 (0-0.3) K/mm3 Baso # (Auto) 0.1 (0.0-0.1) K/mm3 Abs Immat Gran (auto) 0.07 H (0.00-0.031) K/mm3 Absolute Neuts (auto) 4.2 (1.3-6.7) K/mm3 Absolute Nucleated RBC 0.000 (0.0-0.012) K/mm3 Nucleated RBC % 0.0 (0.0-0.2) % Sodium 138 (137-145) mmol/L Potassium 3.6 (3.4-5.0) mmol/L Chloride 108 H (98-107) mmol/L Carbon Dioxide 19 L (22-30) mmol/L Anion Gap 11 (4-12) mmol/L BUN 13 (7-17) mg/dL Creatinine 1.01 H (0.7-1.0) mg/dL Estim Creat Clear Calc 74 ml/min Estimated GFR > 60 (59 - ) Glucose 102 (65-110) mg/dL Calcium 9.1 (8.4-10.2) mg/dL Magnesium 2.2 (1.6-2.3) mg/dL Total Bilirubin 0.6 (0.2-1.3) mg/dL AST 20 (14-36) U/L ALT 15 (6-35) U/L Alkaline Phosphatase 90 (38-126) U/L Total Protein 8.2 (6.3-8.2) g/dL Albumin 4.7 (3.5-5.1) g/dL Urine Color Yellow (Yellow) Urine Appearance Turbid H (Clear) Urine pH 8.0 (5.0-9.0) Ur Specific [place] 1.013 (1.001-1.035) Urine Protein Negative (Negative) mg/dL Urine Glucose (UA) Negative (Negative) mg/dL Urine Ketones Negative (Negative) mg/dL Ur Blood (Man) Negative (Negative) Urine Nitrate Negative (Negative) Urine Bilirubin Negative (Negative) Urine Urobilinogen 0.2 (<2.0) mg/dL Leukocyte Esterase Rfl Negative (Negative) ESSENCE/UL Urine RBC 0-2 (0-2) /hpf Urine WBC 0-5 (0-3) /hpf Ur Squamous Epith Cells Occasional (Few) /hpf Urine Bacteria None seen /hpf Urine Casts 0-2 POC Urine HCG, Qual Negative (Negative) Urine Test Negative Imaging Data Attestation: I personally reviewed and interpreted this imaging study as follows: My impression: Impressions Head CT 06/06/25 06:24 IMPRESSION: 1. No acute intracranial findings. Discharge Plan Discharge Clinical Impression: Drug side effects Migraine Qualifiers: Migraine type: unspecified Status migrainosus presence: without status migrainosus Intractability: not intractable Qualified Code(s): G43.909 - Migraine, unspecified, not intractable, without status migrainosus Patient Disposition: Home Condition: Stable Instructions: Antibiotic Form Patient Language: Venezuelan Prescriptions: No Action lisdexamfetamine 50 mg capsule 50 mg PO DAILY bupropion HCl 300 mg tablet extended release 24 hr 300 mg PO DAILY omeprazole 40 mg capsule,delayed release(DR/EC) 40 mg PO DAILY Qty: 90 1RF norethindrone-e.estradiol-iron [Blisovi Fe 09/25 (28)] 1 mg-20 mcg (21)/75 mg (7) tablet 1 tablet PO DAILY Qty: 84 0RF topiramate [Topamax] 25 mg tablet 50 mg PO BID Qty: 360 1RF Ubrelvy 100 mg tablet 100 mg PO .COMPLEX Qty: 16 3RF Rx Instructions: 100 mg orally at start of migraine. May repeat dose one; Follow-up/Referrals: Ruperto Tavarez DO [Primary Care Provider, Internal Medicine]
[2025-06-06] MEDS: dexAMETHasone SOD PHOS INJ 10 MG/ML 1 ML VIAL IV PUSH (00:15)
[2025-06-06] MEDS: SODIUM CHLORIDE 0.9% IV 1,000 ML 999 ML IV CONT (00:15)
[2025-06-06] MEDS: SODIUM CHLORIDE 0.9% IV 200 ML 100 ML (00:15)
[2025-06-06] MEDS: PROCHLORPERAZINE EDISYLATE 10 MG/2 ML VIAL IV PUSH (00:15)
[2025-06-06] MEDS: MAGNESIUM SULF 2 GM/WATER 50ML 2 GM/50 ML BAG IVPB (00:16)
[2025-06-06 00:21] LABS: Alanine Aminotransferase 15 U/L (6-35); Albumin Level 4.7 g/dL (3.5-5.1); Alkaline Phosphatase 90 U/L (38-126); Anion Gap 11 mmol/L (4-12); Aspartate Amino Transferase 20 U/L (14-36); Bilirubin,Total 0.6 mg/dL (0.2-1.3); Blood Urea Nitrogen 13 mg/dL (7-17); Calcium 9.1 mg/dL (8.4-10.2); Carbon Dioxide 19 mmol/L (22-30); Chloride 108 mmol/L (98-107); Estimated CRCL calculation 74 ml/min; Estimated Glomerular Filt Rate > 60; Glucose 102 mg/dL (65-110); Magnesium 2.2 mg/dL (1.6-2.3); Potassium 3.6 mmol/L (3.4-5.0); Sodium 138 mmol/L (137-145); Total Protein 8.2 g/dL (6.3-8.2)
[2025-06-06 00:24] VITALS: O2SAT 100
[2025-06-06 00:25] VITALS: BP 132/73; O2SAT 100
[2025-06-06 00:32] VITALS: O2SAT 100
[2025-06-06 00:32] LABS: Hematocrit 38.9 % (37.0-47.0); Hemoglobin 13.3 g/dL (12.0-15.0); Immature Granulocyte Percent A 0.9 % (0-0.5); Lymphocytes Absolute Auto 2.75 K/mm3 (0.9-3.2); Mean Corpuscular HGB Conc 34.2 g/dl (32-36); Mean Corpuscular Hemoglobin 32.0 pg (26-34); Mean Corpuscular Volume 93.5 fl (80-100); Nucleated Red Blood Cells Absolute Auto 0.000 K/mm3 (0.0-0.012); Nucleated Red Blood Cells Perc 0.0 % (0.0-0.2); Platelet Count Result 356 k/mm3 (150-375); Red Blood Count 4.16 M/mm3 (4.2-5.4); White Blood Count 7.7 K/mm3 (4.5-10.0)
[2025-06-06 00:47] VITALS: O2SAT 100
[2025-06-06 02:13] VITALS: BP 126/82; PULSE 62; RESP 16; TEMP 36.5; O2SAT 96
== END 2025-06-06 02:14 | disposition home or self-care (01) ==
PROVIDERS: Emergency Provider Student in an Organized Health Care Education/Training Program; PCP Internal Medicine
DX: G43.909 Migraine, unspecified, not intractable, without status migrainosus (principal); T42.6X5A Adverse effect of other antiepileptic and sedative-hypnotic drugs, initial encounter
CPT/HCPCS: 36415; 70450; 80053; 81001; 81025; 83735; 85025; 93005; 96361; 96365; 96375; 99284; J0780; J1100; J1200; J3475; J7030